=== PATIENT | male | born 1975 | race Caucasian/White ===

== ENCOUNTER → 2021-03-19 | Emergency (ER) | payer OTHER ==
[~2021-03-19] VITALS: Ht 433.3 cm; Wt 122.7 kg
[~2021-03-19] MED LIST: CYCL-394 PO; NAPR-706 PO
[2021-03-19 09:13] VITALS: BP 128/90
== END | disposition home or self-care (01) ==
LOC: ER 08:44
DX: S56.511A Strain of other extensor muscle, fascia and tendon at forearm level, right arm, initial encounter (principal); M79.631 Pain in right forearm; G89.29 Other chronic pain; Z79.899 Other long term (current) drug therapy; X58.XXXA Exposure to other specified factors, initial encounter; Y93.89 Activity, other specified; Y92.89 Other specified places as the place of occurrence of the external cause; Y99.8 Other external cause status
CPT/HCPCS: 96372; 99282

== ENCOUNTER 2022-06-28 09:45 | Emergency (ER) | payer OTHER ==
[~2022-06-28] VITALS: Ht 182.9 cm; Wt 125.0 kg
[2022-06-28 10:37] VITALS: BP 161/112
[2022-06-28] MEDS ORDERED: orphenadrine citrate 60mg/2ml inj. IM ONE (11:35)
[2022-06-28] MEDS ORDERED: ketorolac tromethamine 15mg/ml inj. IM ONE (11:35)
[2022-06-28] MEDS ORDERED: IBUP-1984 PO (12:51)
[2022-06-28] MEDS ORDERED: ORPH100T2 PO (12:51)
[2022-06-28] MEDS ORDERED: PRED20TA PO (12:52)
== END 2022-06-28 13:08 | disposition home or self-care (01) ==
LOC: ER 09:46
DX: M54.59 Other low back pain (principal); G89.29 Other chronic pain; V87.7XXA Person injured in collision between other specified motor vehicles (traffic), initial encounter; Y93.89 Activity, other specified; Y92.89 Other specified places as the place of occurrence of the external cause; Y99.8 Other external cause status
CPT/HCPCS: 72125; 72128; 72131; 96372; 99284; J1885; J2360

== ENCOUNTER 2025-02-07 10:28 | Inpatient (IN) | payer OTHER ==
[2025-02-07] VITALS (7 sets, daily range): BP systolic 143–149; BP diastolic 75–102; PULSE 66–76; RESP 15–22; TEMP 97.2–98.5; O2SAT 96–98
[~2025-02-07] VITALS: Ht 182.9 cm; Wt 131.3 kg
[~2025-02-07 10:28] MED LIST changes: +ORPH100T4 PO
--- NOTE | 2025-02-07 10:40 | ELECTROCARDIOGRAPH REPORT ---
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 John Valencia Measurements Intervals [place] Rate: 166 P: 0 NC: 0 QRS: 90 QRSD: 100 T: -25 QT: 272 QTc: 453 Interpretive Statements Atrial fibrillation with rapid V-rate Borderline right axis deviation Abnormal R-wave progression, late transition Probable left ventricular hypertrophy Nonspecific T abnormalities, inferior leads Baseline wander in lead(s) II,aVR,aVF Electronically Signed On 02-07-2025 18:34:[address] John Valencia Please click the below link to view image of tracing.
[2025-02-07 10:53] LABS: MEAN PLATELET VOLUME 8.1 FL (7.4-10.4); RED CELL DISTRIBUTION WIDTH 14.7 % (11.5-14.5)
[2025-02-07] MEDS: diltiazem 5mg/ml 5ml inj. IV ONE ×2 (10:54→11:13)
[2025-02-07] MEDS: normal saline 1000ml 1,000 ML IV ONE ×2 (10:54→12:03)
--- NOTE | 2025-02-07 11:04 | RADIOLOGY REPORT ---
CHEST RADIOGRAPH Indication: CP Technique: DI CHEST,SINGLE VIEW Comparison: None FINDINGS: 618.1 The cardiac silhouette is unremarkable. The lungs demonstrate no pulmonary airspace consolidation. Th e pulmonary vasculature is unremarkable. There is no pleural effusion. There is no pneumothorax. X-R ay Radiation Dose Structure Report IMPRESSION: No pulmonary airspace consolidation.
--- NOTE | 2025-02-07 11:11 | Physician Documentation ---
History of Present Illness ~ Chief Complaint: Dizziness Stated Complaint: NEAR SYNCOPE Time Seen by MD: 10:42 Primary Medical Doctor: Dr Montiel PR Source: patient Mode of Arrival: POV, Ambulatory Exam Limitations: no limitations HPI Patient in with palpitations since the middle of last night. He states that this happens about every 6 months and lasts about 3-5 days. Today he just felt extra dizzy. He does take testosterone because his levels were really low but denies any other medication use. He states that he has had these episodes of palpitations and dizziness every 6 months for about 6 years. He has never seen a doctor for it. Denies any pain or shortness of breath. Medication Reconciliation Allergies: Coded Allergies: No Known Allergies (Unverified , 07/06/13) Scheduled Cyclobenzaprine HCl (Cyclobenzaprine HCl), 10 MG PO BID Naproxen* (Naproxen*), 250 MG PO DAILY, (Reported) Orphenadrine Citrate (Norflex), 1 TAB PO Q12H PRN Past Medical History Past Medical History: Chronic Back Pain Past Surgical History: no surgical history Smoking Status: Never smoker Alcohol Use: None Drug Use: none Lives with: Family Lives In: Home Review of Systems All Other Systems at this time: Reviewed and Negative Physical Exam Vital Signs: Temperature: 97.6, Source: Oral, Heart Rate: 165, Respiratory Rate: 18, BP: 158/92, Pulse Oximetry: 98, Weight: 131.350 Oxygen Flow Rate: 0 General Appearance: alert, WD/WN Neck: non-tender, full range of motion Head: normal Respiratory: lungs clear, normal breath sounds, no respiratory distress Chest: no accessory muscle use Cardiovascular: no edema, no gallop, no JVD, no murmur, irregularly irregular Gastrointestinal: normal palpation, non-tender Skin: warm/dry, normal color Orientation / Memory / CN: oriented x3, memory intact Motor / Sensory: no motor deficit, no sensory deficit Cerebellar Function: normal Psych: appropriate Progress Progress Note Patient in with new onset AFib. Blood pressure is stable. Likely has had this in the past and has paroxysmal AFib. This is unknown. No prior EKG. He has never seen a doctor during these episodes. Started on a L of fluids and was given a 2nd bolus. Initially given 2 rounds of 10 mg of diltiazem and started on a drip. Initially came from the 160s down to the 140s and then down into the 115 range. Labs unremarkable including CBC, chemistry and troponin. Chest x- ray negative. EKG and chest x-ray independently reviewed by me. Heart rate has slowly started to go back up to the 120-130 range so increasing the drip. Discussed with the hospitalist team who will admit for further treatment. Critical care time spent 30 minutes with patient care, chart work and consultation. Results/Orders Results/Orders Orders - BETH CAMACHO MD Chest,Single View (02/07/25 10:34) Monitor (02/07/25 10:34) Saline Lock (02/07/25 10:34) Oxygen (02/07/25 10:34) PBNP (02/07/25 10:34) Hs Troponin I W Calculations (02/07/25 12:34) Hs Troponin I W Calculations (02/07/25 13:34) CMP (02/07/25 10:34) Page Hospitalist (02/07/25 ) Diltiazem-Ns 100mg/100ml (Cardizem-Ns 10 (02/07/25 11:53) Normal Saline 1000ml (0.9% Sodium Chlori (02/07/25 12:00) Hgb A1c (02/07/25 10:44) MG (02/07/25 10:44) Completed Orders - BETH CAMACHO MD Chest,Single View (02/07/25 10:34) Cbc/Diff (02/07/25 10:34) Electrocardiogram (02/07/25 10:34) Hs Troponin I W Calculations (02/07/25 10:34) Normal Saline 1000ml (0.9% Sodium Chlori (02/07/25 10:50) Diltiazem Iv (Cardizem Iv 5mg/Ml Inj.) (02/07/25 10:50) Diltiazem Iv (Cardizem Iv 5mg/Ml Inj.) (02/07/25 11:10) Medications Received in ER Medications (Trade) Dose Ordered Sig/Mg Route PRN Reason Start Time Stop Time Status Last Admin Dose Admin Sodium Chloride 1,000 ml @ 1,000 mls/hr ONCE ONCE IV 02/07/25 10:50 02/07/25 11:49 DC 02/07/25 10:54 1,000 MLS/HR (Cardizem IV 5mg/ ml inj.) 10 mg ONCE ONCE IV 02/07/25 10:50 02/07/25 10:51 DC 02/07/25 10:54 10 MG (Cardizem IV 5mg/ ml inj.) 10 mg ONCE ONCE IV 02/07/25 11:10 02/07/25 11:11 DC 02/07/25 11:13 10 MG Diltiazem HCl 100 ml @ 5 mls/hr Q20H IV 02/07/25 11:53 02/07/25 11:59 5 MLS/HR Sodium Chloride 1,000 ml @ 1,000 mls/hr ONCE ONCE IV 02/07/25 12:00 02/07/25 12:59 02/07/25 12:03 1,000 MLS/HR Vital Signs 02/07/25 02/07/25 02/07/25 02/07/25 10:33 10:46 10:46 10:54 Temp 97.6 Pulse 83 176 165 Resp 18 18 B/P (MAP) 150/92 158/92 (114) 158/92 Pulse Ox 98 98 O2 Flow Rate 0 0 02/07/25 02/07/25 02/07/25 11:13 11:30 11:59 Pulse 150 137 154 Resp 16 B/P (MAP) 144/109 126/85 (99) Pulse Ox 98 O2 Flow Rate 0 Laboratory Tests Test 02/07/25 10:44 White Blood Count 7.7 Red Blood Count 5.88 Hemoglobin 16.8 Hematocrit 48.2 Mean Corpuscular Volume 81.9 Mean Corpuscular Hemoglobin 28.5 Mean Corpuscular Hemoglobin Concent 34.8 Red Cell Distribution Width 14.7 H Platelet Count 227 Mean Platelet Volume 8.1 Neutrophils (%) (Auto) 48.2 Lymphocytes (%) (Auto) 34.9 Monocytes (%) (Auto) 10.7 Eosinophils (%) (Auto) 5.4 Basophils (%) (Auto) 0.8 Neutrophils # (Auto) 3.7 Lymphocytes # (Auto) 2.7 Monocytes # (Auto) 0.8 Eosinophils # (Auto) 0.4 Basophils # (Auto) 0.1 CBC Comment Prothrombin Time 10.6 INR International Normalized Ratio 1.0 Activated Partial Thromboplast Time 27 Coagulation Comments Sodium Level 136 Potassium Level 3.9 Chloride Level 103 Carbon Dioxide Level 27.0 Anion Gap 6 L Blood Urea Nitrogen 18 Creatinine 1.42 H Estimated GFR/1.73 m2 52 BUN/Creatinine Ratio 12.7 Glucose Level 142 H Hemoglobin A1c 5.4 Calcium Level 8.8 Total Bilirubin 0.7 Aspartate Amino Transf (AST/SGOT) 66 H Alanine Aminotransferase (ALT/SGPT) 93 H Alkaline Phosphatase 79 Troponin I High Sensitivity 21 Pro-B-Type Natriuretic Peptide 210 H Total Protein 7.5 Albumin 4.3 Globulin 3.2 Albumin/Globulin Ratio 1.3 Chemistry Comments Departure Disposition: ADMITTED INPATIENT Admitted to Inpatient Unit: yes, to hospitalist Admission Level of Care: Med/Surg with Tele Impression: Primary Impression: New onset a-fib Condition: Stable Referrals: NO PRIMARY CARE PROVIDER (PCP) Signature Scribe Signature: No scribe used Attestation: No scribe used BETH CAMACHO MD Feb 07, 2025 11:10
[2025-02-07 11:12] LABS: CREATININE 1.42 MG/DL (0.60-1.10); TOTAL CARBON DIOXIDE 27.0 MMOL/L (24-32); eCRCL 67 ML/MIN; eGFR 52 ML/MIN
[2025-02-07 11:19] LABS: PRO BRAIN NATRIURETIC PEPTIDE 210 PG/ML (0-125)
[2025-02-07] MEDS ORDERED: diltiazem-D5W 125mg/125ml 125 ML IV SCH (11:40)
[2025-02-07] MEDS: diltiazem-NS 100mg/100ml 100 ML IV SCH (11:59)
[2025-02-07] MEDS ORDERED: magnesium Cl slow-release 64mg tablet PO PRN (12:10)
[2025-02-07] MEDS ORDERED: ondansetron/PF 4mg/2ml inj IV PRN (12:10)
[2025-02-07] MEDS ORDERED: magnesium sulf-water 4G/100mL 100 ML IV PRN (12:10)
[2025-02-07] MEDS ORDERED: potassium Cl 40MEQ/1/2NS 520ml 520 ML IV PRN (12:10)
[2025-02-07] MEDS ORDERED: HYDROmorphone/PF 0.2 MG/ML SYRINGE IV PRN (12:10)
[2025-02-07] MEDS ORDERED: mag hydrox/Alum hydrox/simeth 30ml oral suspension PO PRN (12:10)
[2025-02-07] MEDS ORDERED: magnesium sulf-water 2g/50mL 50 ML IV PRN (12:10)
[2025-02-07] MEDS ORDERED: HYDROmorphone inj. 0.5 MG/0.5 ML DISP.SYRIN IV PRN (12:10)
[2025-02-07] MEDS ORDERED: magnesium hydroxide 30ml (MOM) UD suspension PO PRN (12:10)
[2025-02-07] MEDS ORDERED: potassium Cl 20 mEq SR tablet PO PRN (12:10)
[2025-02-07] MEDS: PERFLUTREN PROTEIN-A MICROSPHR (Optison) 0.22 MG/ML 3ML VIAL IV ONE (12:16)
[2025-02-07] MEDS: normal saline 1000ml 1,000 ML IV SCH (12:29)
[2025-02-07 12:42] LABS: APTT 27 SECONDS (22-32); INR 1.0 INR
[2025-02-07] MEDS: amiodarone 150mg/dext, iso-os 100 ML IV ONE (13:11)
[2025-02-07] MEDS: amiodarone/D5 360MG/200ML BAG 200 ML IV SCH (13:11)
--- NOTE | 2025-02-07 13:18 | HISTORY AND PHYSICAL-Residence ---
History & Physical Providers to CC Resident Creating Document: TEODORO HEREDIA RES ~ History of Present Illness Primary Medical Doctor: No primary care doctor but seeing nurse practitioner at [facility]. 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 Endorses dizziness from 10:00 a.m. today 20 minutes after lifting 90 lb of weight in gym. Reports palpitations, irregular and a feeling like a thumping sensation from last night and it got subsided now, associated with intake of 6 pieces of cheese with high salt. Endorses shortness of breath for 1 hour duration in the morning and he could not able to catch his breath but relieved now. He do reports multiple episodes of AFib in the past 7 years whenever he tries to eat high salt food and usually goes away in 2-4 days. She endorses that he has polycythemia and he thinks that he has polycythemia because of [place] and taking testosterone. He denied abdominal pain, abdominal distention, wheezing, fever. He denied past medical history of CHF, coronary artery, CVA, diabetes, hypertension, hyperlipidemia, CKD. Discuss code status with the patient and patient wants to be full code Allergies: Coded Allergies: No Known Allergies (Unverified , 07/06/13) Home Medications Home Medications Active Norflex (Orphenadrine Citrate) 100 Mg Tablet.sa 1 Tab PO Q12H PRN 10 Days Cyclobenzaprine HCl 10 Mg Tablet 10 Mg PO BID Reported Naproxen* (Naproxen) 250 Mg Tablet 250 Mg PO DAILY Past Medical History Past Medical History Paroxysmal AFib Polycythemia Past Surgical History Surgical History Comment Noncontributory Family History Family History: Atrial fibrillation Past Social History Smoking: Non-Smoker Alcohol Use: None Drug Use: None Lives with: Family Lives In: Home ROS All Other Systems: Reviewed and Negative ROS Reviewed in full and negative except positive pertinent as in HPI Exam Vitals: Vital Signs Date Time Temp Pulse Resp B/P (MAP) Pulse Ox O2 Delivery O2 Flow Rate FiO2 02/07/25 12:29 148 114/91 02/07/25 11:30 16 98 0 02/07/25 10:33 97.6 General: General: Alert, awake, oriented to time place person. Not in acute distress. Obese Neck: non-tender, full range of motion. No JVD and carotid upstroke Head: normal Respiratory: lungs clear, normal breath sounds, no respiratory distress Chest: no accessory muscle use Cardiovascular: Tachycardia, irregularly irregular . No murmurs no edema, no gallop, Gastrointestinal: normal palpation, non-tender, no guarding/rigidity/rebound tenderness Skin: warm/dry, normal color Extremities: Bilateral nonpitting pedal edema. No cyanosis/clubbing Nervous system: No focal neurological deficits Psych: appropriate Diagnostic Data Last Recorded Lab Results: 02/07/25 1044 02/07/25 1044 Diagnostic Data: Laboratory Tests Test 02/07/25 10:44 Prothrombin Time 10.6 SECONDS (9.0-12.0) INR International Normalized Ratio 1.0 INR Activated Partial Thromboplast Time 27 SECONDS (22-32) Coagulation Comments Advance Care Planning Advanced Care planning: Add on additional 30 min Additional Plan AFib with RVR Chadvasc score- 1 Heart rate is running in 150s 160s and received 2 doses of diltiazem and ER physician put him on the diltiazem drip titrated the dose to 10-15 mics but heart rate is not controlling with the 2 doses of 10 mg each diltiazem and we ordered 150 IV amiodarone push followed by amiodarone drip at the rate of 1 mics. If the patient is showing response we will titrate the Cardizem drip and we will discontinue the Cardizem drip and we will continue amiodarone drip. He is not on any anti coagulants and rate control strategies . Troponins are in upward trend -90s. Troponinemia likely secondary to NSTEMI versus possible PE EKGs showing atrial fibrillation with rapid ventricular rate. Troponins are trending up in 170s and it could be secondary to NSTEMI Started on heparin drip MENG Serum creatinine is 1.42 and Ordered 1 L of normal saline bolus. On IV normal saline at the rate of 100 mL/hour Ordered urinary lytes and serum osmolality we will follow up with the results Continue to monitor CMP Polycythemia Hemoglobin and RBC is normal now We will continue to monitor CBC Obesity class 2 Advised lifestyle modifications of weight loss, physical exercise Recommended to follow up outpatient Code status: Full code Diet: Heart healthy diet DVT prophylaxis: heparin PT: Ordered Prognosis: Guarded Teodoro Heredia IM resident, PGY 2 Date of Service: Feb 07, 2025 Billing Provider: TRINH GRAMAJO MDDIGNITY HEALTH ST. [facility] MEDICAL CENTERCAITLIN,[facility], RES Feb 07, 2025 13:18
[2025-02-07] MEDS: HEPARIN DRIP-CARDIAC**PHARMACIST-TO-DOSE IV ONE (14:45)
[2025-02-07] MEDS: heparin 10,000 units/1 ML INJ IV ONE (15:02)
[2025-02-07] MEDS ORDERED: EXEM25TA5 PO (15:03)
[2025-02-07] MEDS ORDERED: testosterone IM (15:08)
[2025-02-07] MEDS: MESSAGE TO NURSING IV ONE ×2 (15:13→20:25)
[2025-02-07] MEDS: heparin 25,000 UNIT/250ml bag 250 ML IV PRN (15:15)
[2025-02-07 15:51] LABS: LEUKOCYTE ESTERASE ,URINE NEGATIVE (Neg); NITRITES, URINE NEGATIVE (Neg); OCCULT BLOOD,URINE NEGATIVE (Neg)
[2025-02-07 15:52] LABS: UA COLLECTION TYPE NON-SPECIFIED
[2025-02-07 15:55] LABS: OSMOLALITY UA 557.0 MOSM/K (50-1400)
[2025-02-07 16:00] LABS: CREATININE,URINE RANDOM 83.0 MG/DL; TOTAL PROTEIN,URINE RANDOM 7.0 MG/DL
[2025-02-07] MEDS ORDERED: heparin, porcine 5000 units/ml vial SQ SCH (16:00)
[2025-02-07] MEDS: K and/or MAG REPLACEMENT MC SCH (20:00)
[2025-02-07] MEDS: heparin 10,000 units/1 ML INJ IV PRN (20:19)
[2025-02-07] MEDS: docusate sod 100mg capsule PO SCH (20:24)
[2025-02-08] VITALS (14 sets, daily range): BP systolic 114–159; BP diastolic 65–124; PULSE 56–82; RESP 16–24; TEMP 97–98.2; O2SAT 93–100
[2025-02-08 03:15] LABS: MEAN PLATELET VOLUME 8.3 FL (7.4-10.4); RED CELL DISTRIBUTION WIDTH 14.6 % (11.5-14.5)
[2025-02-08 03:22] LABS: CHOL/HDL RATIO 4.5 (0.00-4.99); CREATININE 1.16 MG/DL (0.60-1.10); LDL CHOLESTEROL 103 MG/DL (50-100); TOTAL CARBON DIOXIDE 25.9 MMOL/L (24-32); eCRCL 82 ML/MIN; eGFR 66 ML/MIN
[2025-02-08] MEDS: heparin 10,000 units/1 ML INJ IV ONE (04:50)
[2025-02-08] MEDS: MESSAGE TO NURSING IV ONE ×2 (04:52→11:05)
[2025-02-08] MEDS: potassium Cl 20 mEq SR tablet PO PRN (08:27)
[2025-02-08] MEDS ORDERED: metoprolol tartrate 1mg/ml inj IV PRN (08:45)
[2025-02-08] MEDS ORDERED: aminophylline 250mg/10ml inj. IV PRN (08:45)
[2025-02-08] MEDS: regadenoson 0.4mg/5ml syringe IV PRN (11:27)
[2025-02-08] MEDS: diazepam inj 5 MG/ML inj. IV ONE (11:29)
[2025-02-08] MEDS: aspirin 81mg, enteric-coated 1 TAB TABLET.DR PO SCH (13:18)
--- NOTE | 2025-02-08 14:06 | RADIOLOGY REPORT ---
EXAM: NM NM JOSH SCAN History: tachycardia/ cp Comparison Study: None TECHNIQUE: Resting myocardial perfusion imaging was performed approximately 30 minutes following the injection of 8.13 mCi of Tc-99m sestamibi. Peak pharmacologic stress, the patient was injected with 3 2.97 mCi of Tc-99m sestamibi. Gated post stress images were acquired in the supine and prone position s approximately 30 minutes after stress and left ventricular ejection fraction (LVEF) was calculated. Findings: The overall quality of the study is adequate. The left ventricular cavity is noted to be enlarged. There is no evidence of abnormal lung activity. Additionally, the right ventricle appears normal. Myocardial perfusion images demonstrate a small size, mild intensity perfusion defect along the mid t o distal anterior wall and apex which is mostly reversible. Gated imaging reveals normal thickening and wall motion with a calculated LVEF of 41 % with end-diast olic volume of 143 mL at stress. Impression: 1. Small size, mild intensity perfusion defect along the mid to distal anterior wall and apex which i s mostly reversible, favored ischemia. 2. Overall gated left ventricular systolic function was normal with calculated LVEF of 41 % at stress . 3. Enlarged left ventricle.
[2025-02-08] MEDS ORDERED: TEST200V33 IM (15:24)
--- NOTE | 2025-02-08 16:33 | PROGRESS NOTE- Residence ---
Progress Note - Resident Providers to CC Resident Creating Document: TEODORO HEREDIA RES ~ Antibiotic Timeout Antibiotic Ordered?: No Subjective Seen and examined the patient at bedside. He does not have any active chest pain, shortness of breath, palpitations, pedal edema. Atrial fibrillation is subsided with amiodarone push and amiodarone drip. Objective Vital Signs Date Time Temp Pulse Resp B/P (MAP) Pulse Ox O2 Delivery O2 Flow Rate FiO2 02/08/25 13:19 67 02/08/25 11:57 16 134/84 93 Room Air 02/08/25 11:42 98.1 02/08/25 08:00 0.0 21 Result Diagram: 02/08/25 0230 02/08/25 0230 General: Alert, awake, oriented to time place person. Not in acute distress. Obese. He seems to be in pleasant mood. HEENT: No icterus, no pallor, no JVD, no carotid upstroke. Nontender. Full range of motion Respiratory: lungs clear, normal breath sounds, no respiratory distress Chest: no accessory muscle use Cardiovascular: Sinus rhythm. No murmurs no edema, no gallop, Gastrointestinal: normal palpation, non-tender, no guarding/rigidity/rebound tenderness Skin: warm/dry, normal color Extremities: Bilateral nonpitting pedal edema. No cyanosis/clubbing Nervous system: No focal neurological deficits Psych: Mood and affect is normal Coagulation Studies Laboratory Tests Test 02/07/25 10:44 02/07/25 18:17 02/08/25 10:06 Prothrombin Time 10.6 SECONDS (9.0-12.0) INR International Normalized Ratio 1.0 INR Activated Partial Thromboplast Time 27 SECONDS (22-32) D-Dimer 0.50 MG/L FEU (0-0.50) D-Dimer Comment APTT (Heparin Protocol) 58 SECONDS (45-60) Coagulation Comments Advance Care Planning Advanced Care plannin - 30 Minutes Plan Plan AFib with RVR likely 2/2 coronary artery disease versus cardiomyopathy(infiltrative disease) Chadvasc score- 2 Reverted back to normal sinus rhythm with amiodarone push and amiodarone drip and currently on amiodarone 200 mg p.o. b.i.d. On heparin drip Started on Eliquis 5 mg p.o. b.i.d . Coronary artery disease NSTEMI Echo showed concentric LVH and ejection fraction of 35% and could not able to rule out infiltrative disease Lexiscan showed Small size, mild intensity perfusion defect along the mid to distal anterior wall and apex which is mostly reversible, favored ischemia. Overall gated left ventricular systolic function was normal with calculated LVEF of 41 % at stress. Enlarged left ventricle. On nitroglycerin 0.4 mg p.r.n., aspirin 81 mg, atorvastatin 80 mg and ezetimibe 10 mg LDL is [address] William Gray and we will appreciate his recommendation New onset Acute systolic heart failure Heart failure with reduced ejection fraction(35%) Not in volume overload so we did not give any Lasix On lisinopril 2.5 mg p.o. daily, spironolactone 25 mg, metoprolol 25 mg p.o. b.i.d. On aspirin 81 mg, atorvastatin 80 mg Hypertension, new onset Started on lisinopril 2.5 mg and metoprolol 25 mg and spironolactone 25 mg MENG likely secondary to prerenal, renal tubular stasis Serum creatinine trended down to 1.16 from 1.42 with IV normal saline Discontinued 100 IV normal saline Normal serum osmolality Continue to monitor CMP Polycythemia Hemoglobin and RBC is normal now We will continue to monitor CBC Obesity class 2 A1c is 5.4 Advised lifestyle modifications of weight loss, physical exercise Recommended to follow up outpatient Code status: Full code Diet: Heart healthy diet DVT prophylaxis: SCDs and Eliquis PT: Ordered Prognosis: Guarded Disposition: Anticipate discharge in a.m. 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 Teodoro Heredia IM resident, PGY 2 Date of Service: Feb 08, 2025 Billing Provider: TRINH GRAMAJO MD, VENKATESH, RES Feb 08, 2025 16:33
--- NOTE | 2025-02-08 19:14 | CONSULTATION REPORT ---
History of Present Illness Providers to CC CC: MURALI GRAY MD ~ Reason for Admit\Admit Dx: Cardiology Consultation Refering MD: Hospitalist/Residency Service History of Present Illness This is a 50 year-old male who presented to the ER with palpitations and dizziness. PMH significant for paroxysmal A-fib, polycythemia (secondary to testosterone use). He states he lifts weights at the gym 2 hours per day. He admits to taking many OTC supplements such as Creatine Monohydrate, L- Citrulline, and several Nitric Oxide boosters daily. He reports having palpitations earlier in the week when helping his friend with a construction project in the heat, and admits to not drinking enough water. His palpitations began the next day when at the gym, accompanied by dizzines, lightheadedness, and fatigue. He presented to the ER in A-fib with a rate of 165. He was converted to NSR with IV Amiodarone and Diltiazem, which has since been discontinued. He denies any symptoms at the time of exam. Allergies: Coded Allergies: No Known Allergies (Unverified , 07/06/13) Active prescriptions Cardiac Medications: Eliquis 5mg BID. Zetia 10mg QD. Amiodarone 200mg BID. Lisinopril 2.5mg QD. Spironolactone 25mg QD. Metoprolol Tartrate 25mg BID. Atorvastatin 80mg QD. NTG SL PRN ASA 81mg QD (contraindicated with OAC). Home Medications Home Medications Active Reported TESTOSTERONE CYPIONATE 200mg/ml 10ml vial (Testosterone Cypionate) 200 Mg/Ml Vial 0.5 Ml IM QSUNDAY Exemestane 25 Mg Tablet 1 Tab PO TUFR Naproxen* (Naproxen) 250 Mg Tablet 250 Mg PO DAILY Past Medical History Medical History Comment Paroxysmal A-Fib Polycythemia Past Surgical History Surgical History Comment No cardiovascular or pulmonary surgeries or procedures. Past Family History Family History: Atrial fibrillation Past Social History Social History Comment Smoking: Non-Smoker Alcohol Use: None Drug Use: None Lives with: Family Lives In: Home ++Many over the counter bodybuilding supplements, including Creatine Monohydrate, L-Citrulline, several Nitric Oxide booster pre-workout powders, and several other substances that were not familiar. Physical Exam Last Vital Signs Recorded: Temperature: 98.1, Source: Oral, Heart Rate: 67, Respiratory Rate: 16, BP: 157/84, Pulse Oximetry: 93, Weight: 131.350 General Appearance: alert, no apparent distress EENT: PERRL/EOMI, normal ENT inspection Neck: normal inspection Respiratory: lungs clear, normal breath sounds, no respiratory distress Chest: no accessory muscle use Cardiovascular: normal peripheral pulses, regular rate, rhythm, no edema, no gallop, no JVD, no murmur, irregularly irregular Peripheral Pulses: 3+ radial (R), 3+ radial (L), 3+ dorsalis pedis (R), 3+ dorsalis pedis (L) Gastrointestinal: normal palpation, non-tender, bowels sounds present Back: no CVA tenderness Extremities: normal range of motion Neurologic: oriented x4, memory intact Psychiatric: normal mood/affect Skin: normal color, warm/dry Lymphatic: no adenopathy Review of Systems All Other Systems at this time: Reviewed and Negative ROS ROS reviewed and negative except those specified in HPI. Results EKG EKG Normal Sinus Rhythm Echocardiogram Echocardiogram LV: Normal LV size with severely reduced function. Mild concentric hypertrophy. LVEF 35-40%. RV: Mildly dilated with mildly reduced function. LA: Mildly dilated LA. RA: Normal. AV: Trileaflet AV appears mildly sclerotic without stenosis. No insufficiency. MV: Mild annular calcification without stenosis. Mild regurgitation. TV: Normal PV without stenosis, trace regurgitation. PV: Normal PV without stensosis, physiologicc insufficiency. Great vessels: Normal. Pericardium: No effusion. Cardiac Stress Test Cardiac Stress Test Impression: 1. Small size, mild intensity perfusion defect along the mid to distal anterior wall and apex which is mostly reversible, favored ischemia. 2. Overall gated left ventricular systolic function was normal with calculated LVEF of 41 % at stress. 3. Enlarged left ventricle. X-ray X-ray The cardiac silhouette is unremarkable. The lungs demonstrate no pulmonary airspace consolidation. The pulmonary vasculature is unremarkable. There is no pleural effusion. There is no pneumothorax. X-Ray Radiation Dose Structure Report IMPRESSION: No pulmonary airspace consolidation. Diagram Lab Result Diagram: 02/08/25 0230 02/08/25 0230 Assessment/Plan Additional Plan This is a 50 year-old male who presented to the ER with palpitations and dizziness. PMH significant for paroxysmal A-fib, polycythemia. He presented to the ER in A-fib RVR with a rate of 160-165. He was converted to NSR with IV Amiodarone and IV Diltiazem. He remains in NSR. Denies any symptoms at time of exam. Paroxysmal Atrial Fibrillation [id number] score - 2 -Continue Eliquis 5mg BID. -Continue Metoprolol Tartrate 25mg BID. -Continue Amiodarone 200mg BID. NSTEMI Nuclear stress test positive for small area of apical ischemia. HS Troponin peaked at 167, trending down. No chest pain/pressure or other ischemic symptoms. -D/C Heparin. -Continue Atorvastatin 80mg QHS. -Continue Zetia 10mg QD. -Discussed findings and symptoms with Dr. Rebekah Gray, who has decided to defer cardiac cath at this time. Will reconsider if symptoms develop. Chronic Systolic Heart Failure Pt. has no s/s of acute congestion. -D/C Lisinopril. -Start Entresto 24/26mg BID. -Continue Spironolactone 25mg QAM. -Continue Metoprolol Tartrate 25mg BID. -Start Jardiance 10mg QD. Follow up as outpatient with Dr. Gray within 14 days of discharge. This plan was discussed with supervising physician, Dr. Rebekah Gray, who agrees with above. Supervising MD Supervising Physician: NESHA Ruiz CAN TESTER Feb 08, 2025 19:14
--- NOTE | 2025-02-08 19:26 | CARDIOLOGY REPORT ---
APPROVED REPORT EXAM: Comprehensive 2D, Doppler, and color-flow Echocardiogram. Patient Location: [facility] B Heart Rate: 69 bpm Rhythm: SINUS Indications ARRHYTHMIA PBNP 210 PALPITATIONS DIZZINESS Punch Machine Hand: NONE Previous echo: NONE 2D Dimensions RVDd 3.8 cm IVSd 1.1 (0.7-1.1cm) LVDd 5.3 cm PWd 1.1 (0.7-1.1cm) IVSs 1.4 (0.8-1.2cm) LVDs 4.5 (2.5-4.0cm) PWs 2.0 (0.8-1.2cm) LVOT Diameter 2.15 (1.8-2.4cm) LVEF(%) 30.0 (>50%) IVC 25.15 mm FS (%) 14.2 % SV 39.8 ml CO 2.8 L/min M-Mode Dimensions Left Atrium(MM) 4.78 (2.5-4.0cm) IVSd 1.10 (0.7-1.1cm) LVDd 5.31 (4.0-5.6cm) Aortic Root 3.50 (2.2-3.7cm) PWd 1.10 (0.7-1.1cm) Aortic Cusp Exc 2.22 (1.5-2.0cm) IVSs 1.69 cm LVDs 4.57 (2.0-3.8cm) FS (%) 14 % PWs 1.81 cm ESV(Teich) 96.0 ml LVEF(%) 30 (>50%) Aortic Valve AoV Peak Adiel. 131.0 cm/s AoV VTI 21.8 cm AO Peak GR. 6.9 mmHg AO Mean GR. 4 mmHg LVOT VTI 19.46 cm LVOT Peak Adiel. 115.1 cm/s DWIGHT(VTI)/BSA 3.26 cm2/m2 DWIGHT (VTI) 3.26 cm2 Mitral Valve MV E Velocity 70.0 cm/s MV Peak Gr. 1 mmHg MV DECEL TIME 220 ms MV A Velocity 61.3 cm/s MV PHT 68 ms E/A Ratio 1.1 MVA (PHT) 3.24 cm2 MV VMax61.0 cm/s TDI Lateral E' P. V7.04 cm/s E/Lateral E' 9.9 LEFT VENTRICLE Normal LV size with moderately reduced function. Mild concentric hypertrophy. Cannot exclude infiltra tive disease due to myocardial appearance of hyper - echoic speckle / mottled tissue with visible "sp ine" throughout IV septum. Best visualized in loop: 30-33. There is moderate LV systolic dysfunction present. Overall estimated ejection fraction is about 40%. RIGHT VENTRICLE RV is mildly dilated with mildly reduced function. ATRIA Left atrium is mildly dilated. AORTIC VALVE Trileaflet AV appears mildly sclerotic without stenosis. No insufficiency. MITRAL VALVE Mild MV annular calcification without stenosis. Mild regurgitation. TRICUSPID VALVE TV appears structurally normal with trace regurgitation. PULMONIC VALVE Normal PV without stenosis, physiologic insufficiency. GREAT VESSELS The aortic root is normal in size. PERICARDIUM Normal pericardium. No effusion. Other Information Study Quality: Adequate but TDS subcostal window due to body habitus Conclusion There is moderate LV systolic dysfunction present. Overall estimated ejection fraction is about 40%. Normal LV size with moderately reduced function. Mild concentric hypertrophy. Cannot exclude infiltrative disease due to myocardial appearance of hyper - echoic speckle / mottled tissue with visible "spine" throughout IV septum. Best visualized in loop: 30-33. RV is mildly dilated with mildly reduced function. Trileaflet AV appears mildly sclerotic without stenosis. No insufficiency. Mild MV annular calcification without stenosis. Mild regurgitation. TV appears structurally normal with trace regurgitation. Normal PV without stenosis, physiologic insufficiency. Normal pericardium. No effusion.
--- NOTE | 2025-02-08 20:46 | PROGRESS NOTE- Residence ---
Progress Note - Resident Providers to CC Resident Creating Document: BONNIE VALDOVINOS, ROYER ~ Central Line/PICC still needed: No Huff-Non Protocol Huff Indications Met/Not Met: F/C Indications Not Met Antibiotic Timeout Antibiotic Ordered?: No Subjective Patient and at bedside, they are both very combative and upset. Unwilling to be discharged AMA and unwilling to stay, unwilling to listen to any further explanation regarding the need for overnight observation. Objective Vital Signs Date Time Temp Pulse Resp B/P (MAP) Pulse Ox O2 Delivery O2 Flow Rate FiO2 02/08/25 19:21 69 02/08/25 11:57 16 134/84 93 Room Air 02/08/25 11:42 98.1 02/08/25 08:00 0.0 21 Result Diagram: 02/08/25 0230 02/08/25 0230 Unable to examine Coagulation Studies Laboratory Tests Test 02/07/25 10:44 02/07/25 18:17 02/08/25 10:06 Prothrombin Time 10.6 SECONDS (9.0-12.0) INR International Normalized Ratio 1.0 INR Activated Partial Thromboplast Time 27 SECONDS (22-32) D-Dimer 0.50 MG/L FEU (0-0.50) D-Dimer Comment APTT (Heparin Protocol) 58 SECONDS (45-60) Coagulation Comments Assessment Assessment This is a 50-year-old male patient with new onset atrial fibrillation, new onset heart failure with reduced ejection fraction and reversible defect on the Lexiscan is admitted for further management. Plan Plan Patient and very combative and unwilling to listen to any further explanation regarding the need for overnight admission. He has started on multiple different new medications including GDM T for heart failure, amiodarone, Eliquis and Zetia Despite spending significant amount of time trying to explain the need for overnight observation especially with newly diagnosed findings and also for the reason of starting these new medications today some of which the patient has not received yet in the hospital so far, the family's unwilling to cooperate and are argumentive Discussed the above with the charge nurse. Discharge planning we will be AMA if the patient is unwilling to stay overnight He is also upset due to his inability to sleep overnight, we will offer change if rooms and anxiolytics/sleep aids if required Date of Service: Feb 08, 2025 Billing Provider: TRINH GRAMAJO MD, DEEPANJALI, RES Feb 08, 2025 20:46
[2025-02-08] MEDS: sacubitril/valsartan 24mg-26mg tablet PO SCH (21:52)
[2025-02-09 02:00] VITALS: BP 138/89; PULSE 56; RESP 20; TEMP 97.9; O2SAT 98
[2025-02-09 05:46] LABS: MEAN PLATELET VOLUME 8.2 FL (7.4-10.4); RED CELL DISTRIBUTION WIDTH 14.7 % (11.5-14.5)
[2025-02-09 06:00] VITALS: BP 127/76; PULSE 62; RESP 17; TEMP 97.2; O2SAT 98
[2025-02-09 06:00] LABS: CREATININE 1.22 MG/DL (0.60-1.10); TOTAL CARBON DIOXIDE 27.6 MMOL/L (24-32); eCRCL 78 ML/MIN; eGFR 62 ML/MIN
[2025-02-09 08:00] VITALS: RESP 24; O2SAT 100
[2025-02-09] MEDS: EMPAGLIFLOZIN 10 MG TABLET PO SCH (08:10)
[2025-02-09 08:15] VITALS: BP_SYST 142; PULSE 60
[2025-02-09] MEDS: metoprolol tartrate 12.5mg (1/2 tablet) PO SCH (08:15)
[2025-02-09] MEDS ORDERED: SACU1TAB PO (11:19)
[2025-02-09] MEDS ORDERED: EZET10TA6 PO (11:19)
[2025-02-09] MEDS ORDERED: AMIO200T73 PO (11:19)
[2025-02-09] MEDS ORDERED: EMPA10TA PO (11:19)
[2025-02-09] MEDS ORDERED: SPIR25TA5 PO (11:19)
[2025-02-09] MEDS ORDERED: ATOR-2 PO (11:19)
[2025-02-09] MEDS ORDERED: APIX5TAB3 PO (11:19)
[2025-02-09] MEDS ORDERED: METO-539 PO (11:19)
[2025-02-09] MEDS ORDERED: NITR0.4T48 SL (11:32)
--- NOTE | 2025-02-09 19:43 | DISCHARGE SUMMARY-Residence ---
Discharge Summary Providers to CC Resident Creating Document: ROCÍO HEREDIAESH, RES ~ Discharge Summary Admission Diagnosis: A FIB RVR Hospital Course DATE OF ADMISSION: 02/07/25 DATE OF DISCHARGE: 02/09/25 XAM: Comprehensive 2D, Doppler, and color-flow Echocardiogram. Patient Location: [facility] Heart Rate: 69 bpm Rhythm: SINUS Indications ARRHYTHMIA PBNP 210 PALPITATIONS DIZZINESS Nutrition Technician: NONE Previous echo: NONE 2D Dimensions RVDd 3.8 cm IVSd 1.1 (0.7-1.1cm) LVDd 5.3 cm PWd 1.1 (0.7-1.1cm) IVSs 1.4 (0.8-1.2cm) LVDs 4.5 (2.5-4.0cm) PWs 2.0 (0.8-1.2cm) LVOT Diameter 2.15 (1.8-2.4cm) LVEF(%) 30.0 (>50%) IVC 25.15 mm FS (%) 14.2 % SV 39.8 ml CO 2.8 L/min M-Mode Dimensions Left Atrium(MM) 4.78 (2.5-4.0cm) IVSd 1.10 (0.7-1.1cm) LVDd 5.31 (4.0-5.6cm) Aortic Root 3.50 (2.2-3.7cm) PWd 1.10 (0.7-1.1cm) Aortic Cusp Exc 2.22 (1.5-2.0cm) IVSs 1.69 cm LVDs 4.57 (2.0-3.8cm) FS (%) 14 % PWs 1.81 cm ESV(Teich) 96.0 ml LVEF(%) 30 (>50%) Aortic Valve AoV Peak Adiel. 131.0 cm/s AoV VTI 21.8 cm AO Peak GR. 6.9 mmHg AO Mean GR. 4 mmHg LVOT VTI 19.46 cm LVOT Peak Adiel. 115.1 cm/s DWIGHT(VTI)/BSA 3.26 cm2/m2 DWIGHT (VTI) 3.26 cm2 Mitral Valve MV E Velocity 70.0 cm/s MV Peak Gr. 1 mmHg MV DECEL TIME 220 ms MV A Velocity 61.3 cm/s MV PHT 68 ms E/A Ratio 1.1 MVA (PHT) 3.24 cm2 MV VMax 61.0 cm/s TDI Lateral E' P. V 7.04 cm/s E/Lateral E' 9.9 LEFT VENTRICLE Normal LV size with moderately reduced function. Mild concentric hypertrophy. Cannot exclude infiltrative disease due to myocardial appearance of hyper - echoic speckle / mottled tissue with visible "spine" throughout IV septum. Best visualized in loop: 30-33. There is moderate LV systolic dysfunction present. Overall estimated ejection fraction is about 40%. RIGHT VENTRICLE RV is mildly dilated with mildly reduced function. ATRIA Left atrium is mildly dilated. AORTIC VALVE Trileaflet AV appears mildly sclerotic without stenosis. No insufficiency. MITRAL VALVE Mild MV annular calcification without stenosis. Mild regurgitation. TRICUSPID VALVE TV appears structurally normal with trace regurgitation. PULMONIC VALVE Normal PV without stenosis, physiologic insufficiency. GREAT VESSELS The aortic root is normal in size. PERICARDIUM Normal pericardium. No effusion. Other Information Study Quality: Adequate but TDS subcostal window due to body habitus Conclusion There is moderate LV systolic dysfunction present. Overall estimated ejection fraction is about 40%. Normal LV size with moderately reduced function. Mild concentric hypertrophy. Cannot exclude infiltrative disease due to myocardial appearance of hyper - echoic speckle / mottled tissue with visible "spine" throughout IV septum. Best visualized in loop: 30-33. RV is mildly dilated with mildly reduced function. Trileaflet AV appears mildly sclerotic without stenosis. No insufficiency. Mild MV annular calcification without stenosis. Mild regurgitation. TV appears structurally normal with trace regurgitation. Normal PV without stenosis, physiologic insufficiency. Normal pericardium. No effusion. CHEST X RAY NORMAL Discharge Diagnosis\\Comment: A FIB WITH RVR ACUTE SYSTOLIC HEART FAILURE, AHA STAGE C, NYHA 2 HF WITH REDUCED EF OF 35% CAD NSTEMI ACUTE ANTERIOR WALL ISCHEMIA HYPERTENSION,NEW ONSET OBESITY CLASS 2 MENG 2/2 RENAL TUBULAR STASIS Operations\\Procedures: LEXISCAN EXAM: NM NM JOSH SCAN History: tachycardia/ cp Comparison Study: None TECHNIQUE: Resting myocardial perfusion imaging was performed approximately 30 minutes following the injection of 8.13 mCi of Tc-99m sestamibi. Peak pharmacolo gic stress, the patient was injected with 32.97 mCi of Tc-99m sestamibi. Gated post stress images were acquired in the supine and prone positions approximately 30 minutes after stress and left ventricular ejection fraction (LVEF) was calculated. Findings: The overall quality of the study is adequate. The left ventricular cavity is noted to be enlarged. There is no evidence of abnormal lung activity. Additionally, the right ventricle appears normal. Myocardial perfusion images demonstrate a small size, mild intensity perfusion defect along the mid to distal anterior wall and apex which is mostly reversible. Gated imaging reveals normal thickening and wall motion with a calculated LVEF of 41 % with end-diastolic volume of 143 mL at stress. Impression: 1. Small size, mild intensity perfusion defect along the mid to distal anterior wall and apex which is mostly reversible, favored ischemia. 2. Overall gated left ventricular systolic function was normal with calculated LVEF of 41 % at stress. 3. Enlarged left ventricle. Consultants: Dr. Rubi Gray Complications: None Condition on DC: Stable New Medications: Amiodarone HCl (Amiodarone HCl) 200 Mg Tablet 1 TAB PO BID for 30 Days, #60 TAB 0 Refills Apixaban (Eliquis) 5 Mg Tablet 5 MG PO BID for 30 Days, #60 TAB Atorvastatin Calcium (Atorvastatin Calcium) 80 Mg Tablet 1 TAB PO DAILY for 30 Days, #30 TAB 0 Refills Empagliflozin (Jardiance) 10 Mg Tablet 1 TAB PO DAILY for 30 Days, #30 TAB 0 Refills Ezetimibe (Zetia) 10 Mg Tablet 1 TAB PO DAILY for 30 Days, #30 TAB 0 Refills Metoprolol Succinate* (Toprol Xl*) 25 Mg Tab.sr.24h 1 TAB PO DAILY for 30 Days, #30 TAB Nitroglycerin (Nitroglycerin) 0.4 Mg Tab.subl 0.4 MG SL PRNCP PRN for chest pain MDD 1.2 for 30 Days, #90 TAB 0.4MG PRN FOR CHEST PAIN Q 5 M FOR 3 DAYS. 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 Endorses dizziness from 10:00 a.m. today 20 minutes after lifting 90 lb of weight in gym. Reports palpitations, irregular and a feeling like a thumping sensation from last night and it got subsided now, associated with intake of 6 pieces of cheese with high salt. Endorses shortness of breath for 1 hour duration in the morning and he could not able to catch his breath but relieved now. He do reports multiple episodes of AFib in the past 7 years whenever he tries to eat high salt food and usually goes away in 2-4 days. She endorses that he has polycythemia and he thinks that he has polycythemia because of living [place], [place] town and taking testosterone. He denied abdominal pain, abdominal distention, wheezing, fever. He denied past medical history of CHF, coronary artery, CVA, diabetes, hypertension, hyperlipidemia, CKD. Discuss code status with the patient and patient wants to be full code Course in the hospital admited for AFib with RVR with Chadvasc score- 2. we couldnot able to control the Afib with Diltiazem and we changed diltiazem to Amiodarone 150mg iv initial dose and the we put him on Amiodarone titrable protocol. A fib was Reverted back to normal sinus rhythm with amiodarone push and amiodarone drip and changed to amiodarone 200 mg p.o. b.i.d.meanwhile his troponin levels were elevated and we anticouagulated with heparin drip.we consulted the observation nurse Dr.Aaz Gray . he was evaulated for ACS- NSTEMI with lexiscan& echo. we Started him on Eliquis 5 mg p.o. b.i.d after discontinuation of heparin drip. Echo showed concentric LVH and ejection fraction of 35% and could not able to rule out infiltrative disease. Lexiscan showed Small size, mild intensity perfusion defect along the mid to distal anterior wall and apex which is mostly reversible, favored ischemia. Overall gated left ventricular systolic function was normal with calculated LVEF of 41 % at stress. Enlarged left ventricle. he was prn nitroglycerin 0.4mg,Aspirin,Atorvastatin & Ezetimibe as the LDL level is 103. we started him on GDMT medication for new onset Acute systolic Heart Failure with Lisinopril, spirinolactone,Metoprolol.he was not in volume overload so we did not give any Lasix. Dr.aaz Gray team discontinued Lisinopril and put him on entresto.Hypertension, new onset was diagnosed and he is entresto,metoprolol,spirinolactone. Meng was noted and trended down to 1.16 from 1.42. A1c is 5.4 . we recommended forAdvised lifestyle modifications of weight loss, physical exercise & Recommended to follow up outpatient for obesity.he was on scds for dvt prophylaxis. He was on testosterone weekly once along exemestane. On 02/08/25 evening. He was very agitated, upset, combative, was threatening us to discharge him immediately as he feels claustrophobic and he wants to go home. Patient and very combative and unwilling to listen to any further explanation regarding the need for overnight admission. He has started on multiple different new medications including GDM T for heart failure, amiodarone, Eliquis and Zetia Despite spending significant amount of time trying to explain the need for overnight observation especially with newly diagnosed findings and also for the reason of starting these new medications today some of which the patient has not received yet in the hospital so far, the family's unwilling to cooperate and are argumentive. Discussed the above with the charge nurse. Discharge planning we will be AMA if the patient is unwilling to stay overnight. He is also upset due to his inability to sleep overnight, we will offer change if rooms and anxiolytics/sleep aids if required. on 02/09/25 we clearly explained him about yestrerdays situation about the GDMT medication was introduced & heart rates was in 50s and we cannot discharge him as his medical condition is not stable to discharge and emphasized him bout monitoring him as he is diagnosed with Acute Systolic Heart FAILURE,A fib with Rvr,new onset Hypertension,MENG . on 02/09/25 morning he was again in agitated & aggarasive mood and he became upset and threatened us to discharge him immediately and we evaulated him again on today he is medically stable with recommendations to followup with [facility] care & Nutrition Technician in 4 weeks. Examination time of discharge Vital Signs Date Time Temp Pulse Resp B/P (MAP) Pulse Ox O2 Delivery O2 Flow Rate FiO2 02/09/25 08:15 60 02/09/25 08:00 24 100 Room Air 02/09/25 06:00 97.2 127/76 (93) 02/08/25 08:00 0.0 21 examination: General: Alert, awake, oriented to time place person. Not in acute distress. Obese. He seems to be in pleasant mood. HEENT: No icterus, no pallor, no JVD, no carotid upstroke. Nontender. Full range of motion Respiratory: lungs clear, normal breath sounds, no respiratory distress Chest: no accessory muscle use Cardiovascular: Sinus rhythm. No murmurs no edema, no gallop, Gastrointestinal: normal palpation, non-tender, no guarding/rigidity/rebound tenderness Skin: warm/dry, normal color Extremities: Bilateral nonpitting pedal edema. No cyanosis/clubbing Nervous system: No focal neurological deficits Psych: Mood and affect is normal Laboratory Tests Test 02/08/25 02:30 02/08/25 10:06 02/09/25 05:28 White Blood Count 5.2 X10'3 4.9 X10'3 Red Blood Count 5.20 X10'6 5.19 X10'6 Hemoglobin 14.6 g/dl 14.8 g/dl Hematocrit 42.7 % 43.0 % Mean Corpuscular Volume 82.1 FL 82.8 FL Mean Corpuscular Hemoglobin 28.1 PG 28.5 PG Mean Corpuscular Hemoglobin Concent 34.2 g/dL 34.4 g/dL Red Cell Distribution Width 14.6 % 14.7 % Platelet Count 165 X10'3 166 X10'3 Mean Platelet Volume 8.3 FL 8.2 FL Neutrophils (%) (Auto) 40.0 % 48.9 % Lymphocytes (%) (Auto) 42.2 % 34.1 % Monocytes (%) (Auto) 9.4 % 9.8 % Eosinophils (%) (Auto) 6.5 % 5.9 % Basophils (%) (Auto) 1.9 % 1.3 % Neutrophils # (Auto) 2.1 X10'3 2.4 X10'3 Lymphocytes # (Auto) 2.2 X10'3 1.7 X10'3 Monocytes # (Auto) 0.5 X10'3 0.5 X10'3 Eosinophils # (Auto) 0.3 X10'3 0.3 X10'3 Basophils # (Auto) 0.1 X10'3 0.1 X10'3 CBC Comment APTT (Heparin Protocol) 43 SECONDS 58 SECONDS Coagulation Comments Sodium Level 138 MMOL/L 136 MMOL/L Potassium Level 3.4 MMOL/L 4.1 MMOL/L Chloride Level 106 MMOL/L 104 MMOL/L Carbon Dioxide Level 25.9 MMOL/L 27.6 MMOL/L Anion Gap 6 4 Blood Urea Nitrogen 15 MG/DL 14 MG/DL Creatinine 1.16 MG/DL 1.22 MG/DL Estimated GFR/1.73 m2 66 ML/MIN 62 ML/MIN BUN/Creatinine Ratio 12.9 11.5 Glucose Level 123 MG/DL 102 MG/DL Calcium Level 8.2 MG/DL 8.5 MG/DL Magnesium Level 1.7 MG/DL 1.9 MG/DL Total Bilirubin 0.3 MG/DL 0.8 MG/DL Aspartate Amino Transf (AST/SGOT) 44 U/L 34 U/L Alanine Aminotransferase (ALT/SGPT) 82 U/L 74 U/L Alkaline Phosphatase 72 IU/L 62 IU/L Total Protein 6.2 G/DL 6.6 G/DL Albumin 3.7 G/DL 3.7 G/DL Globulin 2.5 G/DL 2.9 G/DL Albumin/Globulin Ratio 1.5 1.3 Triglycerides Level 200 MG/DL Cholesterol Level 163 MG/DL LDL Cholesterol 103 MG/DL HDL Cholesterol 36 MG/DL Cholesterol/HDL Ratio 4.5 Thyroid Stimulating Hormone (TSH) 3.58 ulU/ml Free Thyroxine 1.23 NG/DL Chemistry Comments Discharge advice 1)FOLLOW UP WITH PCP AT [facility] IN 2 DAYS. 2)FOLLOWUP WITH LIPID PANEL IN 1 MONTH. 3)FOLLOWUP WITH [facility] OPERATOR, DR. RUBI GRAY. 4)READ ADVERSE SIDE EFFECTS OF PRESCRIBED MEDICATIONS 5)CONTINUE ENTRESTO 24MG/26MG PO BID,AMIODARONE 200MG PO BID,ELIQUIS 5MG PO BID,METOPOROLOL 25MG PO DAILY, ATORVASTATIN 80MG PO DAILY, EZETIMIBE 10MG PO DAILY,SPIRINOLACTONE 25MG PO DAILY,JARDIANCE 10 MG . 6) CONTINUE NITROGLYCERIN 0.4MG PRN FOR CHEST PAIN Q5 MIN FOR A TOTAL OF 3 DOSES.. 7) RECOMMENDED LIFE STYLE MODIFICATIONS WITH HEART HEALTHY DIET. 8)READ ADVERSE SIDE EFFECTS OF PRESCRIBED MEDICATIONS 9)CALL 911 OR VISIT ER IF CHEST PAIN,SOB OR ANY EMERGENCY. *Problems/Diagnosis: (1) Atrial fibrillation with RVR (2) CAD (coronary artery disease) (3) Myocardial ischemia of anterior wall (4) Acute systolic CHF, NYHA class 2 and ACC/AHA stage C (5) Hypertension (6) MENG (acute kidney injury) (7) NSTEMI (non-ST elevated myocardial infarction) Total Time Spent on D/C: > 30 Minutes Date of Service: Feb 09, 2025 Billing Provider: TRINH GRAMAJO MD, VENKATESH, RES Feb 09, 2025 19:43
[2025-02-12] MEDS ORDERED: TESTOSTERONE CYPIONATE 200 MG/ML VIAL IM SCH (08:00)
== END 2025-02-09 11:50 | disposition home or self-care (01) | DRG 280 ==
LOC: ER 10:29 → ED HOLD 12:06 → EDBEDREQ 13:28 → PCU 3S 14:35
PROVIDERS: ADMIT Family Medicine; ATTEND Family Medicine
PROC: 4A02XM4 Measurement of Cardiac Total Activity, External Approach (ICD-10-PCS; principal; 2025-02-08)
PROC: 3E033HZ Introduction of Radioactive Substance into Peripheral Vein, Percutaneous Approach (ICD-10-PCS; 2025-02-08)
DX: I48.0 Paroxysmal atrial fibrillation (principal); I50.21 Acute systolic (congestive) heart failure; I21.4 Non-ST elevation (NSTEMI) myocardial infarction; N17.0 Acute kidney failure with tubular necrosis; I13.0 Hypertensive heart and chronic kidney disease with heart failure and stage 1 through stage 4 chronic kidney disease, or unspecified chronic kidney disease; N18.9 Chronic kidney disease, unspecified; E11.22 Type 2 diabetes mellitus with diabetic chronic kidney disease; E66.812 Obesity, class 2; Z79.01 Long term (current) use of anticoagulants; Z86.73 Personal history of transient ischemic attack (TIA), and cerebral infarction without residual deficits; Z68.39 Body mass index [BMI] 39.0-39.9, adult
CPT/HCPCS: 36415; 71045; 78452; 80053; 80061; 81003; 82570; 83036; 83735; 83880; 83930; 83935; 84156; 84300; 84439; 84443; 84484; 85025; 85379; 85610; 85730; 87081; 93005; 93017; 93306; 99285; A9500; G0378; J0282; J1644; J2785; J3360; J3490; J7030